=== PATIENT | male | born 1985 | race Caucasian/White ===

== ENCOUNTER 2017-08-14 15:02 | Emergency (ER) | payer BC, SELFPAY ==
[2017-08-14 15:38] VITALS: BP 106/76; PULSE 106; RESP 20; TEMP 36.8; O2SAT 98; BMI 22.2
[2017-08-14 15:53] LABS: UTC Influenza A Antigen Negative (Negative); UTC Influenza B Antigen Positive (Negative)
--- NOTE | 2017-08-14 16:07 | HMH.EDUTC ---
[facility] [place] Disposition Clinical Impression: Influenza Disposition: Home, Self-Care Condition on Discharge: Good Instructions: Influenza Additional Instructions: ? Start Tamiflu today if you are going to take it. Discussed risk and possible benefits. ? Lots of rest ? Increase Fluids water, Gatorade, powerade, pedialyte,if /toddler/child ? Alternate Tylenol and / or ibuprofen as discussed for fever, aches, chills x 24 hours without medication for symptoms ? Follow up IMMEDIATELY for new or worsening Symptoms OR no noticeable improvement over the next 48-72 hours, 911 for difficulty or breathing ? You or your child area contagious until no fever, aches, chills for 24 hours with medication for symptoms Follow up with family doctor Return if needed Prescriptions: Brompheniramine/Pseudoephed/Dm [Bromfed DM Cough Syrup 5mL] 10 ml PO Q4HP PRN #250 ml PRN Reason: Cough Oseltamivir Phosphate [Tamiflu 75mg Capsule] 75 mg PO BID #10 cap Forms: Work/School Release Time of Disposition: 16:19 Medical Decision Making - Medical Records Medical records reviewed: Yes: I reviewed the patient's medical records. Vital Signs: 08/14/17 15:38 Temperature 98.2 F Temperature Source Temporal Artery Scan Pulse Rate [Right Brachial] 106 H Respiratory Rate 20 Blood Pressure [Right Arm] 106/76 Blood Pressure Mean [Right Arm] 86 Blood Pressure Source [Right Arm] Automatic Cuff Blood Pressure Position [Right Arm] Sitting 02 Sat by Pulse Oximetry 98 Oxygen Delivery Method Room Air - Lab Data Lab Results 08/14/17 15:52: Influenza Type A Ag Negative, Influenza Type B Ag Positive A - Eliecer Inquiry Pt receiving controlled substance: No Eliecer was queried for this patient: No [facility] [place] HPI - General Stated complaint: Headache, cough, Nausea Mode of Arrival: Ambulatory Source of Information: Patient Limitations: No Limitations Description of Symptoms (Recalled from Triage Doc. by RN): COUGH, GE, SINUS DRAINAGE X4 DAYS HEENT Symptoms (Recalled from RN notes): Yes (GE, SINUS DRAINAGE) Resp Symptoms (Recalled from RN notes): Yes (COUGH) Skin Symptoms (Recalled from RN notes): No MS Symptoms (Recalled from RN notes): No Functional Status (Recalled from RN notes): N/A - History of Present Illness Provider Complaint: Patient states that he began to feel bad about 4 days ago State that yesterday he began to feel really bad and having body aches and chills State that last night he began to have sore throat and today when he woke up he felt horrible, state that he is having body aches all over, chills, sore throat cough and not sure if he may have a fever or not - Related Data Previous Rx's Medication Instructions Recorded Brompheniramine/Pseudoephed/Dm 10 ml PO Q4HP PRN #250 ml 08/14/17 [Bromfed DM Cough Syrup 5mL] Oseltamivir Phosphate [Tamiflu 75 mg PO BID #10 cap 08/14/17 75mg Capsule] Allergies Allergy/AdvReac Type Severity Reaction Status Date / Time No Known Allergies Allergy Unverified 06/21/17 15:37 - Worker's Comp Is this a Worker's Comp case?: No [facility] History I have reviewed the patient's past medical history: Yes Medical History: Denies:: Diabetes Mellitus Type 1, Diabetes Mellitus Type 2 Amputation: No Fractures: No - *Social History Smoking Status: Current every day smoker Tobacco Type: cigarettes Alcohol Intake: never - Psychiatric History Expresses thoughts of harming self/others: None Suicide Plan Description: No Plan ROS Obtained: Yes All systems reviewed & no additional complaints - Constitutional Constitutional: Reports body ache, Reports chills - ENT Ears, Nose, Mouth, and Throat: Reports nasal congestion, Reports sore throat Physical Exam - General General appearance: alert, in no apparent distress - Expanded ENT Exam Comment: Throat red irritated - Respiratory Respiratory exam: Present: normal lung sounds bilaterally. Absent: respiratory distress - Ca
--- NOTE | 2017-08-14 16:15 | ED_ITS ---
[facility] [place] Disposition Clinical Impression: Influenza Disposition: Home, Self-Care Condition on Discharge: Good Instructions: Influenza Additional Instructions: ? Start Tamiflu today if you are going to take it. Discussed risk and possible benefits. ? Lots of rest ? Increase Fluids water, Gatorade, powerade, pedialyte,if /toddler/child ? Alternate Tylenol and / or ibuprofen as discussed for fever, aches, chills x 24 hours without medication for symptoms ? Follow up IMMEDIATELY for new or worsening Symptoms OR no noticeable improvement over the next 48-72 hours, 911 for difficulty or breathing ? You or your child area contagious until no fever, aches, chills for 24 hours with medication for symptoms Follow up with family doctor Return if needed Prescriptions: Brompheniramine/Pseudoephed/Dm [Bromfed DM Cough Syrup 5mL] 10 ml PO Q4HP PRN # 250 ml PRN Reason: Cough Oseltamivir Phosphate [Tamiflu 75mg Capsule] 75 mg PO BID #10 cap Forms: Work/School Release Time of Disposition: 16:19 Medical Decision Making - Medical Records Medical records reviewed: Yes: I reviewed the patient's medical records. Vital Signs: 08/14/17 15:38 Temperature 98.2 F Temperature Source Temporal Artery Scan Pulse Rate [Right Brachial] 106 H Respiratory Rate 20 Blood Pressure [Right Arm] 106/76 Blood Pressure Mean [Right Arm] 86 Blood Pressure Source [Right Arm] Automatic Cuff Blood Pressure Position [Right Arm] Sitting 02 Sat by Pulse Oximetry 98 Oxygen Delivery Method Room Air - Lab Data Lab Results 08/14/17 15:52: Influenza Type A Ag Negative, Influenza Type B Ag Positive A - Eliecer Inquiry Pt receiving controlled substance: No Eliecer was queried for this patient: No [facility] [place] HPI - General Stated complaint: Headache, cough, Nausea Mode of Arrival: Ambulatory Source of Information: Patient Limitations: No Limitations Description of Symptoms (Recalled from Triage Doc. by RN): COUGH, GE, SINUS DRAINAGE X4 DAYS HEENT Symptoms (Recalled from RN notes): Yes (GE, SINUS DRAINAGE) Resp Symptoms (Recalled from RN notes): Yes (COUGH) Skin Symptoms (Recalled from RN notes): No MS Symptoms (Recalled from RN notes): No Functional Status (Recalled from RN notes): N/A - History of Present Illness Provider Complaint: Patient states that he began to feel bad about 4 days ago State that yesterday he began to feel really bad and having body aches and chills State that last night he began to have sore throat and today when he woke up he felt horrible, state that he is having body aches all over, chills, sore throat cough and not sure if he may have a fever or not - Related Data Previous Rx's Medication Instructions Recorded Brompheniramine/Pseudoephed/Dm 10 ml PO Q4HP PRN #250 ml 08/14/17 [Bromfed DM Cough Syrup 5mL] Oseltamivir Phosphate [Tamiflu 75 mg PO BID #10 cap 08/14/17 75mg Capsule] Allergies Allergy/AdvReac Type Severity Reaction Status Date / Time No Known Allergies Allergy Unverified 06/21/17 15:37 - Worker's Comp Is this a Worker's Comp case?: No [facility] History I have reviewed the patient's past medical history: Yes Medical History: Denies:: Diabetes Mellitus Type 1, Diabetes Mellitus Type 2 Amputation: No Fractures: No - *Social History Smoking Status: Current every day smoker
[2017-08-14 16:28] VITALS: BP 106/76; PULSE 106; RESP 20; TEMP 36.8
== END 2017-08-14 16:28 | disposition home or self-care (01) ==
PROVIDERS: Emergency Provider Nurse Practitioner
DX: J11.1 Influenza due to unidentified influenza virus with other respiratory manifestations (principal)
CPT/HCPCS: 87804; 99202

== ENCOUNTER 2021-03-23 20:39 | Emergency (ER) | payer BC, SELFPAY ==
[2021-03-23 20:54] VITALS: BP 145/85; PULSE 67; RESP 16; TEMP 36.6; O2SAT 99; BMI 20.9
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
[2021-03-23 21:41] VITALS: BP 145/85; PULSE 67; RESP 16; TEMP 36.6; O2SAT 99
== END 2021-03-23 21:42 | disposition home or self-care (01) ==
PROVIDERS: Emergency Provider Nurse Practitioner Family; PCP Family Medicine
DX: K13.0 Diseases of lips (principal); F17.210 Nicotine dependence, cigarettes, uncomplicated
CPT/HCPCS: 87070; 87077; 87186; 87205; 99202; G0463

== ENCOUNTER → 2021-07-07 12:20 | Outpatient (CLI) | payer BC, SELFPAY | PROVIDERS: PCP Family Medicine; Visit Provider Nurse Practitioner | DX: Z20.822 Contact with and (suspected) exposure to COVID-19 (principal) | CPT/HCPCS: C9803; U0003; U0005 ==

== ENCOUNTER → 2021-07-09 09:43 | Outpatient (CLI) | payer BC, SELFPAY | PROVIDERS: Visit Provider Nurse Practitioner | DX: U07.1 COVID-19 (principal) | CPT/HCPCS: C9803; U0003; U0005 ==

== ENCOUNTER 2022-03-05 02:32 | Emergency (ER) | payer BC, SELFPAY ==
[2022-03-05 02:33] VITALS: BP 116/78; PULSE 90; RESP 19; TEMP 36.9; O2SAT 100; BMI 25.0
[2022-03-05 02:44] VITALS: BMI 25.0
--- NOTE | 2022-03-05 02:45 | CT_ITS ---
PROCEDURE INFORMATION: Exam: CT Head Without Contrast Exam date and time: 03/05/2022 2:54 AM Age: 36 years old Clinical indication: Dizziness; Additional info: Dizziness, lightheaded, congestion TECHNIQUE: Imaging protocol: Computed tomography of the head without contrast. Radiation optimization: All CT scans at this facility use at least one of these dose optimization techniques: automated exposure control; mA and/or kV adjustment per patient size (includes targeted exams where dose is matched to clinical indication); or iterative reconstruction. COMPARISON: No relevant prior studies available. FINDINGS: Brain: Normal. No hemorrhage. Unremarkable white matter. No mass effect. Cerebral ventricles: No ventriculomegaly. Paranasal sinuses: Visualized sinuses are unremarkable. No fluid levels. Mastoid air cells: Visualized mastoid air cells are well aerated. Bones/joints: Normal symmetric internal auditory canals. No acute fracture. Soft tissues: Unremarkable. IMPRESSION: No evidence of acute intracranial hemorrhage, mass effect, or edema.
[2022-03-05 02:52] LABS: Influenza A, PCR Not Detected (NotDetected); Influenza B, PCR Not Detected (NotDetected)
[2022-03-05 02:57] LABS: Chloride 101 mmol/L (98-107); Sodium 139 mmol/L (136-145)
[2022-03-05 02:59] LABS: Basophils # 0.2 K/mm3 (0-0.2); Basophils % 3.1 % (0.1-2.0); Eosinophils # 0.1 K/mm3 (0.0-0.4); Eosinophils % 2.6 % (0.1-12.0); Hematocrit 48.2 % (42.0-52.0); Hemoglobin 15.2 g/dL (14.1-18.0); Lymphocytes % 19.1 % (10-50); Mean Corpuscular HGB Conc 31.4 g/dL (31.8-35.4); Mean Corpuscular Hemoglobin 32.8 pg (27.0-31.2); Mean Corpuscular Volume 104.3 fl (80-94); Mean Platelet Volume 7.8 fl (7.4-10.4); Monocytes # 0.6 K/mm3 (0.1-1.0); Monocytes % 11.1 % (1.7-9.3); Neutrophils # 3.5 K/mm3 (1.8-7.8); Platelet Count 291 K/mm3 (142-424); Red Blood Count 4.62 M/mm3 (4.60-6.20); Red Cell Distribution Width 13.1 % (11.5-17.5); White Blood Count 5.4 K/mm3 (4.8-10.8)
[2022-03-05 03:00] LABS: Blood Urea Nitrogen 12 mg/dl (9-20); Calcium 9.6 mg/dl (8.4-10.2); Carbon Dioxide 32 mmol/L (22.0-30.0); Creatinine Clearance Estimated 99 mL/min (50-200); Estimated Glomerular Filt Rate 85 ml/min (>60); GFR (African American) 103 ML/MIN (>60); Glucose 110 mg/dl (74-100)
[2022-03-05 03:02] LABS: Alanine Aminotransferase 23 U/L (12-78); Alkaline Phosphatase 74 U/L (38-126); Aspartate Amino Transferase 36 U/L (17-59); Bilirubin,Direct 0.2 mg/dl (0.0-0.4); Bilirubin,Indirect 0.1 mg/dL (0.0-0.9); Bilirubin,Total 0.3 mg/dl (0.2-1.3); Bilirubin,Unconjugated 0.2 mg/dL (0.0-1.1); Total Protein,Serum 8.4 g/dl (6.3-8.2)
[2022-03-05 03:05] LABS: C-Reactive Protein 5.4 mg/L (0-4)
[2022-03-05 03:13] LABS: NT Pro Brain Natriuretic Pep. 47.2 pg/mL (0-125)
--- NOTE | 2022-03-05 03:15 | ECG_ITS ---
APPROVED REPORT Exam: Resting ECG HR:65 bpm ECG Measurements Heart Rate 65 AXES WI 114 P 72 QRSd 87 QRS 74 QT 368 T 60 QTc 380 Conclusion SINUS RHYTHM WITH SINUS ARRHYTHMIA WITH SHORT WI INTERVAL POSSIBLE LEFT ATRIAL ENLARGEMENT [-0.1mV P-WAVE IN V1/V2] BORDERLINE ECG UNCONFIRMED REPORT Electronically signed by : Jony Yao MD 03/05/2022 17:08:06
[2022-03-05 03:20] LABS: T4 (Thyroxine) 6.4 ug/dl (5.53-11.0); Troponin I < 0.01 ng/ml (0.00-0.034)
[2022-03-05 03:21] LABS: Procalcitonin 0.041 ng/mL (0.0-2.0)
[2022-03-05 03:34] LABS: Thyroid Stimulating Hormone 2.06 uIU/mL (0.465-4.68)
[2022-03-05 03:44] LABS: Coronavirus 19, PCR Detected (NotDetected); Erythrocyte Sedimentation Rate 12 mm/hr (0-15)
--- NOTE | 2022-03-05 04:37 | HMH.EDDIZZ ---
Discharge Plan Disposition Patient Disposition: Home, Self-Care Chief Complaint: Dizziness Prescriptions Prescriptions: No Action fluoxetine 40 mg capsule 40 mg PO DAILY Label Comments: TAKE 1 CAPSULE BY MOUTH ONCE DAILY Referrals Follow up/Referrals: Telly Soriano MD [Primary Care Provider] - See instructions Clinical Impressions Clinical Impression: COVID-19 Stand Alone Forms Stand Alone Forms: Work/School Release Instructions Patient Instructions: DI for COVID-19 (Suspected or Confirmed ) Discharge ED Provider: Hubert Cisneros HPI General Chief Complaint: Dizziness Stated Complaint: dizzy, congestion, weak Time Seen by Provider: 03/05/22 04:37 Mode of Arrival: Family Vehicle Source of Information: Patient and Medical Record Limitations: No Limitations Description of Symptoms (Recalled from ER Triage Doc. by RN): Pt c/o dizziness, light-headedness, weakness, sinus & chest congestion, and cough since last night. States he had to leave work because I felt so bad . Denies n/v/d. Denies chest pain, SOA, or dsypnea. He reports a a tickling in my throat but denies sore throat. History of Present Illness HPI Narrative: sore throat with cough and chest congestion with assoc fr[facility] SOLO complaint: lightheadedness Onset (ago): hour(s) Timing: sudden onset Description: lightheadedness History of similar episodes: No History of trauma: No Severity: moderate Associated symptoms: malaise Related Data Home Medications Medication Instructions Recorded Confirmed fluoxetine 40 mg capsule 40 mg PO DAILY Depression 03/05/22 03/05/22 Allergies Allergy/AdvReac Type Severity Reaction Status Date / Time No Known Allergies Allergy Unverified 06/21/17 15:37 [facility] Medical History (Updated 03/05/22 @ 05:03 by Hubert Cisneros MD) Depression Surgical History (Updated 03/05/22 @ 03:09 by Kendal Spears RN) Hx of tonsillectomy Social History (Updated 03/05/22 @ 03:12 by Kendal Spears RN) Smoking Status: Current every day smoker tobacco type: cigarettes packs per day: 1 quit status: not considering quitting Tobacco counseling given: provider counseling alcohol intake: never counseling provided: reduce to 2 or less/day current occupational status: employed and other Travel in the last 8 weeks: None ROS Obtained: Yes All systems reviewed & no additional complaints except as documented Physical Exam General General appearance: alert and in no apparent distress Head Head exam: normocephalic Eye Eye exam: Present PERRL and EOMI ENT ENT exam: Present mucous membranes moist Neck Neck exam: Present full ROM and trachea midline Respiratory Respiratory exam: Present normal lung sounds bilaterally Cardiovascular Cardiovascular exam: Present regular rate; Absent systolic murmur Abdominal Exam Abdominal exam: Present soft Extremities Exam Extremities exam: Present full ROM Neurological Exam Neurological exam: Present alert, oriented X3 and CN II-XII intact Psychiatric Psychiatric exam: Present normal affect Skin Skin exam: Absent rash Medical Decision Making Medical Records Medical records reviewed: Yes I reviewed the patient's medical records. Eliecer Inquiry Pt receiving controlled substance: No Vital Signs: 03/05/22 02:33 03/05/22 04:41 03/05/22 04:41 Temperature 98.4 F 98.5 F Temperature Source Oral Pulse Rate 82 Pulse Rate [Right] 90 Respiratory Rate 19 18 Blood Pressure 117/74 Blood Pressure [Right Arm] 116/78 Blood Pressure Mean [Right Arm] 90 02 Sat by Pulse Oximetry 100 Oxygen Delivery Method Room Air Room Air Room Air Lab Data Lab results reviewed: Yes I reviewed the patient's lab results. Lab Results 03/05/22 02:39: WBC 5.4, RBC 4.62, Hgb 15.2, Hct 48.2, MCV 104.3 H, MCH 32.8 H, MCHC 31.4 L, RDW 13.1, Plt Count 291, MPV 7.8, Neut % (Auto) 64.0, Lymph % (Auto) 19.1, Wallace % (Auto) 11.1 H, Eos %
--- NOTE | 2022-03-05 04:40 | XR_ITS ---
PROCEDURE INFORMATION: Exam: XR Chest Exam date and time: 03/05/2022 4:34 AM Age: 36 years old Clinical indication: Cough; Additional info: Cough, covid + TECHNIQUE: Imaging protocol: Radiologic exam of the chest. Views: 2 views. COMPARISON: No relevant prior studies available. FINDINGS: Lungs: Mild pulmonary hyperinflation. Pleural spaces: Unremarkable. No pleural effusion. No pneumothorax. Heart/Mediastinum: Unremarkable. No cardiomegaly. Bones/joints: Unremarkable. IMPRESSION: Mild pulmonary hyperinflation, otherwise normal exam.
[2022-03-05 04:41] VITALS: BP 117/74; PULSE 82; RESP 18; TEMP 36.9; O2SAT 99
== END 2022-03-05 05:07 | disposition home or self-care (01) ==
PROVIDERS: Emergency Provider Emergency Medicine; PCP Family Medicine
DX: U07.1 COVID-19 (principal); R42 Dizziness and giddiness; R53.1 Weakness; F32.A Depression, unspecified; F17.210 Nicotine dependence, cigarettes, uncomplicated; Z79.899 Other long term (current) drug therapy
CPT/HCPCS: 70450; 71046; 80048; 80076; 83735; 83880; 84145; 84436; 84443; 84484; 85025; 85651; 86140; 93005; 96361; 96374; 96375; 99285; C9803; U0003; U0005

== ENCOUNTER 2025-03-18 16:54 | Emergency (ER) | payer BC, SELFPAY ==
--- NOTE | 2025-03-18 17:00 | XR_ITS ---
PROCEDURE INFORMATION: Exam: XR Left Ankle Exam date and time: 03/18/2025 5:03 PM Age: 39 years old Clinical indication: Injury or trauma; Fall; Sprain or strain; Ankle; Left; Additional info: Left ankle pain and swelling after fall TECHNIQUE: Imaging protocol: Radiologic exam of the left ankle. Views: 3 or more views. COMPARISON: CR XR ANKLE LT MIN 3V 03/18/2025 5:03 PM FINDINGS: Bones/joints: See Soft tissues finding. Soft tissues: Mild left ankle soft tissue swelling without acute osseous abnormality. IMPRESSION: Mild left ankle soft tissue swelling without acute osseous abnormality.
--- NOTE | 2025-03-18 17:00 | XR_ITS ---
PROCEDURE INFORMATION: Exam: XR Left Foot Exam date and time: 03/18/2025 5:04 PM Age: 39 years old Clinical indication: Injury or trauma; Fall; Sprain or strain; Ankle; Left; Additional info: Foot pain after fall TECHNIQUE: Imaging protocol: Radiologic exam of the left foot. Views: 3 or more views. COMPARISON: CR Ankle L 03/18/2025 5:03 PM FINDINGS: Bones/joints: See Soft tissues finding. Soft tissues: Mild left ankle soft tissue swelling without acute osseous abnormality. IMPRESSION: Mild left ankle soft tissue swelling without acute osseous abnormality.
[2025-03-18 17:01] VITALS: BP 128/71; PULSE 85; RESP 16; TEMP 36.6; O2SAT 99; BMI 24.2
--- NOTE | 2025-03-18 17:01 | ED_ITS ---
<Statement entered by Yanet Gomez DO - 03/19/25 19:59> I was consulted by the SIMON, and we discussed the complexity of problems being addressed. I approve the treatment and management plan for this patient's care in the emergency department, thus performing a substantial portion of the medical decision making. Yanet Gomez DO Discharge Plan Disposition Patient Disposition: Home, Self-Care Condition: Good Prescriptions Prescriptions: No Action fluoxetine 40 mg capsule 40 mg PO DAILY Patient Comments: TAKE 1 CAPSULE BY MOUTH ONCE DAILY Referrals Follow up/Referrals: Telly Soriano MD [Primary Care Provider, Medical] - See instructions Activity Restrictions/Add. Instructions Additional Instructions/Restrictions: Please return to the emergency department with any worsening signs or symptoms, I recommend ibuprofen Tylenol other anti-inflammatory medications as needed for pain, as well as rest and ice. Clinical Impressions Clinical Impression: Ankle sprain and strain Instructions Patient Instructions: DI for Ankle Sprain Print Language Print Language: [place] Discharge ED Provider: Yanet Gomez General Adult HPI General Chief complaint: Extremity Injury, Lower Stated complaint: Rolled L Ankle; Edema and Pain Time Seen by Provider: 03/18/25 16:56 Mode of Arrival: Ambulatory Source of Information: Patient Limitations: No Limitations History of Present Illness HPI narrative: 39-year-old presents emergency department with left ankle pain and swelling after a fall earlier today, patient [place] , when he tripped over a log, describes it as a inversion injury, patient denies striking the head, denies any LOC, denies any presyncopal or syncopal event, has been able to ambulate on the affected extremity but is pain limiting, patient [place] any fever chills chest pain shortness of breath nausea vomiting abdominal pain, no back pain, no neck pain, denies any other upper or lower extremity injury. Patient denies any alcohol tobacco or drug use, other past medical history is consistent with RIVER/MDD otherwise unremarkable. Please note that above description of symptoms, in this electronic medical record under categorization of recalled from ER triage doctor by RN are reflective of an initial nursing assessment, however, is not reflective of my full history and physical exam that was personally taken and clarified. Consequentially, this preceding description of symptoms, which may include the patient's categorized chief complaint in the EMR, do not reflect my personal clinical impression, and the ultimate description of history of present illness and patient stated complaints should be deferred to this section of the note. Unless stated otherwise or congruent with this section of the note, additional signs, symptoms, or incongruence should be interpreted as inaccurate with my clinical impression. Onset (ago): hour(s) Related Data Home Medications ?Medication ?Instructions ?Recorded ?Confirmed fluoxetine 40 mg capsule 40 mg PO DAILY Depression 03/05/22 Allergies Allergy/AdvReac Type Severity Reaction Status Date / Time No Known Allergies Allergy Unverified 06/21/17 15:37 [facility] Disclaimer: The information contained in this section may have been updated after the patient was seen, as this information can be updated by other users. Medical History (Updated 03/18/25 @ 18:09 by DARCIE Remy) Depression Surgical History (Updated 03/05/22 @ 03:09 by Kendal Spears RN) Hx of tonsillectomy Social History (Updated 03/05/22 @ 03:12 by Kendal Spears RN) Smoking Status: Unknown if ever smoked quit status: not considering quitting alcohol intake: never counseling provided: reduce to 2 or less/day current occupational status: employed and other Travel in the last 8 weeks?: None Have you lived/traveled outside [place] in past 30 days?: No Contact w/someone who lives/traveled outside US past 30 days?: No Exposure to someone with infectious disease in past 14 days?: No Do you have a fever (greater than 100.4 F or 38 C)?: No Have you tested positive for COVID-19?: No Exposed to someone with COVID-19 in past 14 days?: No Do you have a sore throat?: No Do you have a cough?: No Do you have any weakness?: No Do you have any diarrhea?: No Are you experiencing any unusual bleeding?: No Do you have any muscle aches/pain?: No Do you have any abdominal pain?: No Are you experiencing loss of taste or smell?: No ROS Obtained: Yes All systems reviewed & no additional complaints except as documented Physical Exam General General appearance: alert and in no apparent distress Head Head exam: atraumatic and normocephalic Eye Eye exam: Present PERRL and EOMI ENT ENT exam: Present mucous membranes moist Neck Neck exam: Present normal inspection Chest Chest inspection: Present normal inspection and symmetric chest wall rise Respiratory Respiratory exam: Present normal lung sounds bilaterally; Absent respiratory distress Cardiovascular Cardiovascular exam: Present regular rate and normal rhythm Abdominal Exam Abdominal exam: Present soft; Absent tenderness Extremities Exam Extremities exam: Present normal inspection, tenderness and other (Tenderness to the medial malleolus, no obvious open fracture, otherwise neurovascular intact,); Absent full ROM Neurological Exam Neurological exam: Present alert and oriented X3 Psychiatric Psychiatric exam: Present normal affect Skin Skin exam: Present warm and dry Medical Decision Making Medical Records Medical records reviewed: Yes I reviewed the patient's medical records. Screening: Per USPSTF and CDC recommendations, given the prevalence of disease in our region, it is our hospital?s policy to screen for HIV and viral Hepatitis for all patients aged 18 and over and those with ongoing risk factors. Eliecer Inquiry Pt receiving controlled substance: No Eliecer was queried for this patient: No Vital Signs: 03/18/25 17:01 Temperature 97.8 F Temperature Source Oral Pulse Rate [Radial] 85 Respiratory Rate 16 Blood Pressure [Right Arm] 128/71 Blood Pressure Mean [Right Arm] 90 Blood Pressure Source [Right Arm] Automatic Cuff Blood Pressure Position [Right Arm] Sitting 02 Sat by Pulse Oximetry 99 Oxygen Delivery Method Room Air Orders (Tests/Meds): ED MEDICATIONS Discontinued Medications Generic Name Dose Route Start Last Admin Trade Name Freq PRN Reason Stop Dose Admin Ibuprofen 600 mg 03/18/25 17:01 03/18/25 17:11 Ibuprofen 600 Mg Tablet PO 03/18/25 17:02 600 mg ONCE ONE Administration ORDERS Category Date Time Status XR ankle LT min 3V Stat Exams 03/18/25 17:00 Completed XR foot LT min 3V Stat Exams 03/18/25 17:00 Completed HIV Combo Stat Lab 03/18/25 17:04 Ordered Hepatitis C Ab Qual. W/ RFX Stat Lab 03/18/25 17:04 Ordered Medical Decision Narrative: 39-year-old male presents to the emergency department with left ankle pain after injury today, differential diagnose include but not limited to, ankle sprain/strain, ankle fracture, foot sprain/strain, foot fracture among others. I discussed this patient's case with the attending physician Dr. Gomez Will give 600 mg p.o. Motrin for pain, and obtain x-ray of the left ankle and left foot for further evaluation/characterization. I reviewed the patient's left ankle x-ray, left foot x-ray along with corresponding radiologic reports, mild left ankle soft tissue swelling without acute osseous abnormality. I discussed the results with the patient at the bedside recommend rest ice ibuprofen Tylenol and other anti-inflammatory medications along with elevation for symptomatic relief. Patient was given strict ED return precautions. Patient voiced understanding and agreement with current treatment plan/discharge plan. Critical Care Critical Care Time Critical Care Time: No
--- OUTSIDE RECORDS SUMMARY | 2025-03-18 17:02 | XMS_ITS | Clinical Summary ---
Author Organization [facility] Address [address] [place] [id number] Phone [email or web address] Team Providers Care Trim Setter Name Role Phone Telly Soriano MD Primary Care Provider Allergies Active Allergy Reactions Criticality Noted Date Comments Seasonal Allergies 03/19/2019 Medications FLUoxetine (PROzac) 40 MG capsule Take 40 mg by mouth 1 (one) time each day. 09/28/2022 Active loratadine (CLARITIN) 10 MG tablet Take 10 mg by mouth 1 (one) time each day. Active Active Problems Problem Noted Date Diagnosed Date Alteration in skin integrity 03/02/2023 Lateral epicondylitis of right elbow 01/12/2023 Social History Tobacco Use Types Packs/Day Years Used Date Smoking Tobacco: Every Day E-Cigarettes Smokeless Tobacco: Never Tobacco Cessation:Ready to Q uit: Not Asked; Counseling Given: Not Answered Intimate Partner Violence Answer Date R ecorded Insults You Not on file 10/14/2020 Threatens You Not on file 10/14/2020 Screams at You Not on file 10/14/2020 Physically Hurt Not on file 10/14/2020 Intimate Partner Violence Score Not on file 10/14/2020 Depression Answer Date Recorded PHQ Total Score 0 08/01/2024 Stress Answer Date Recorded Stress in your Life Not on file 05/07/2024 Dealing with Stress 3 05/07/2024 Sex and Gender Information Value Date Recorded Sex Assigned at Not on file Legal Sex Male 7:47 AM CDT Gender Identity Not on file Sexual Orientation Not on file Last Filed Vital Signs Vital Sign Reading Time Taken Comments Blood Pressure 110/70 01/23/2025 8:32 AM EDT Pulse 92 01/23/2025 8:32 AM EDT Temperature 37 C (98.6 F) 01/11/2025 8:17 AM EDT Respiratory Rate 16 01/10/2025 6:18 AM EDT Oxygen Saturation 96% 01/23/2025 8:32 AM EDT Inhaled Oxygen Concentration - - Weight 70.8 kg (156 lb) 01/10/2025 6:18 AM EDT Height 167.6 cm (5' 6 ) 01/10/2025 6:18 AM EDT Body Mass Index 25.18 01/10/2025 6:18 AM EDT Plan of Treatment Health Maintenance Due Date Last Done Comments Dental Cleaning/Exam 1986 HIV Screening 1986 Hepatitis C Screening 1986 Tetanus Diphtheria and Pertussis Immunization (6 - Tdap) 1997 11/02/1991, 09/03/1988, 03/31/1987, Additional history exists HPV Immunization (1 - Male 3-dose series) 2001 Annual Preventive Exam 2004 Hep B Infection Screening - Triple Screen 2004 Pneumococcal: Ped (0 to 5 Yrs) and At-Risk Member (6 to 64 Yrs) (1 of 2 - PCV) 2005 Covid-19 Immunization (1 - ) 03/04/2025 Influenza Immunization (#1) 2025 HIB Immunization Completed 03/09/1988 Polio Immunization Completed 10/31/1991, 0 03/09/1988, 01/28/1987, Additional history exists Hepatitis B Immunization Completed 999, 02/10/1998, 12/16/1997 Hepatitis A Immunization Aged Out No longer eligible based on patient's age to complete this topic Varicella Immunization Aged Out No lo nger eligible based on patient's age to complete this topic Procedures Procedure Name Priority Date/Time Associated Diagnosis Comments XR FINGERS, MINIMUM OF 2 VIEWS - RIGHT CPT 84712 Routine 01/11/2025 8:54 AM EDT Foreign body of right middle finger from Last 3 Months Results * XR Fingers, minimum of 2 views - right CPT 04266 (01/11/2025 8:54 AM EDT) Anatomical Region Laterality Modality Upper Extremities, Fingers Right Radio graphic Imaging Impressions 01/11/2025 8:54 AM EDT IMPRESSION: No acute bony abnormality If pain persists or occult fracture remains clinically suspected, then delayed radiographs in 7-10 days may be of benefit. /Central Ordered By: ZOYA ARANA Narrative 01/11/2025 8:54 AM EDT RIGHT FINGER FILMS COMPARISON: None FINDINGS: A total of 3 views of the right third digits was/were obtained. There is no acute fracture. Soft tissues are unremarkable. The bones are normally mineralized. There is no visualized radiopaque foreign body within the soft tissues. There is a small 1 mm protuberance from the dorsal aspect of the mid aspect of the distal phalanx that is best visualized on the lateral view and is indeterminate. 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 There isno acute fracture. Soft tissues are unremarkable. The bones are normallymineralized. There is no visualized radiopaque foreign body within thesoft tissues. There is a small 1 mm protuberance from the dorsal aspect of the mid aspect of the distalphalanx that is best visualized on the lateral view and isindeterminate. IMPRESSION: IMPRESSION: No acute bony abnormality If pain persists or occult fracture remains clinically suspected, thendelayed radiographs in 7-10 days may be of benefit. [place]/Central Ordered By: ZOYA ARANA us Zoya Arana TRACTOR OPERATOR IMG XR PROCEDURES Final Res ult from Last 3 Months Insurance OPT OUT NO COPAY NB ANTHEM IN COPAY [facility] [id number] [place] [address] Care Teams Trim Setter Relationship Specialty Start Date End Date Telly Soriano MD [address] [place] [address] [place], [place] [address] PCP - General Family Medicine 11/24/22
[2025-03-18] MEDS: IBUPROFEN 600 MG TABLET PO (17:11)
[2025-03-18 18:17] VITALS: BP 104/70; PULSE 69; RESP 17; TEMP 36.6; O2SAT 98
== END 2025-03-18 18:18 | disposition home or self-care (01) ==
PROVIDERS: Emergency Provider Student in an Organized Health Care Education/Training Program; PCP Family Medicine
DX: S93.402A Sprain of unspecified ligament of left ankle, initial encounter (principal); S96.912A Strain of unspecified muscle and tendon at ankle and foot level, left foot, initial encounter; W01.10XA Fall on same level from slipping, tripping and stumbling with subsequent striking against unspecified object, initial encounter
CPT/HCPCS: 73610; 73630; 99283